=== PATIENT | female | born 1990 | race Caucasian/White ===

== ENCOUNTER 2025-05-16 05:37 | Outpatient (CLI) | payer SELFPAY ==
[2025-05-16 05:46] VITALS: BP 110/73; PULSE 78; RESP 16; TEMP 36.4
[2025-05-16 05:47] VITALS: PULSE 85; O2SAT 99
[2025-05-16 05:54] VITALS: BMI 30.6
[2025-05-16] MEDS: Lactated Ringers 500 ML 999 ML IV (06:36)
[2025-05-16 06:50] LABS: Mucous, Urine 0 SEEN /hpf (<or=2+); Red Blood Cells-Urine 0 SEEN /hpf (0-5)
[2025-05-16 06:51] LABS: Hematocrit 37.0 % (37-47); Hemoglobin 12.9 g/dL (12.0-15.0); Immature Granulocytes Count 0.030 X10^3/uL (0.0-0.0); Mean Corp Hgb Conc 34.9 g/dL (32-36); Mean Corpuscular Volume 86.9 fL (81-99); Mean Platelet Vol. 10.3 fl (6.2-12.0); NRBC Flagged by Analyzer 0 % (0-5); Platelet Count 172 K/mm3 (150-450); RBC Distribution Width CV 13.2 % (11.6-14.6); RBC Distribution Width SD 41.6 fl (35.1-43.9); Red Blood Count 4.26 M/mm3 (4.2-5.4); White Blood Count 7.9 K/mm3 (4.4-11.0)
[2025-05-16 07:13] LABS: Creatinine, Urine (random) 8.36 mg/dL (28.00-217.00); Protein, Urine (Random) < 6.0 mg/dL (0.0-12.0); Protein:Creat Ratio UNABLE TO CALCULATE mg/g CRE (0-200)
[2025-05-16 07:17] LABS: Glucose, Dipstick Normal (Normal); Ketone-Dipstick Negative (Negative); Leukocyte Esterase-Dipstick Negative /ul (Negative); Nitrite-Dipstick Negative (Negative); Occult Blood-Urine Negative /ul (Negative); Protein-Dipstick 15 mg/dl (Negative); Specific Gravity, Urine 1.010 (1.002-1.030); Urine Bilirubin Dipstick Negative (Negative)
[2025-05-16 07:18] LABS: Color, Urine Yellow (Yellow)
[2025-05-16 07:20] LABS: Hepatitis C Antibody Nonreactive (Nonreactive)
[2025-05-16 07:22] LABS: Squamous Epithelial Cells - UA 0-5 SEEN /hpf (5-10)
[2025-05-16 07:23] VITALS: BP 126/75; PULSE 82
[2025-05-16 07:24] VITALS: PULSE 82; PULSE 86; RESP 16; TEMP 36.7; O2SAT 97; O2SAT 98
[2025-05-16 07:40] LABS: Barbiturate Urine NEGATIVE (< 200 ng/mL); Benzodiazepine Urine NEGATIVE (< 200 ng/mL); PCP Urine NEGATIVE (< 25 ng/mL); THC Urine NEGATIVE (< 50 ng/mL)
[2025-05-16 07:42] LABS: AST(SGOT) 25 U/L (<=31); Alanine Aminotransfer ALT/SGPT 17 U/L (<=34); Albumin, Serum 3.7 g/dL (3.5-5.0); Alkaline Phosphatase 174 U/L (35-104); Anion Gap 11 (5-15); BUN 12 mg/dL (4-19); BUN/Creat Ratio 26.4 RATIO (10-20); Calcium,Total 9.2 mg/dL (7.6-11.0); Carbon Dioxide 20.4 mmol/L (21.0-32.0); Chloride 104 mmol/L (98-108); Estimated Creatinine Clearance 195.18 ml/min (50-250); Globulin 2.9 g/dL (2.2-4.2); Glucose 82 mg/dL (70-99); Potassium 4.0 mmol/L (3.3-5.1)
[2025-05-16 07:52] LABS: HIV Nonreactive (Nonreactive); Hepatitis B Surface Antigen Preliminary Reactive (Nonreactive); Syphilis Antibodies Nonreactive (Nonreactive)
--- NOTE | 2025-05-16 08:29 | OB.TRI.NOTE ---
HPI - General General Date of Admission: 05/16/25 Date of Service: 05/16/25 Chief Complaint: DFM HPI Narrative RAJEEV FELIX, is a 34 F who presents with DFM. She states she is 43 weeks by LMP. Her LMP is exact and she was having menstrual cycles q 28-30 days. She states she had DFM for 1 hour which worried her. No pain, vb, lof. She has been receiving care through a aircraft layout worker for her and denies complications. She has had 6 prior vaginal deliveries with her aircraft layout worker. She states she had an anatomy ultrasound at an outside office, as well as blood pressure checks. PFSH PFSH Home Medications Medication Instructions Recorded Last Taken Type NK 05/16/25 Unknown History Allergy/AdvReac Type Severity Reaction Status Date / Time diphenhydramine (From Allergy hallucinati Verified 05/16/25 05:51 Benadryl) ons Physical Exam Const alert and no apparent distress General Appearance: comfortable NST FHR Rate Baby A Baseline: 140 Variability:: Moderate Accelerations:: 15 x 15 Decelerations:: None NST Reactive:: Yes FHR Category:: Category I Uterine Activity:: irregular Assessment & Plan (1) Post-dates : PLAN: NST reactive and reassuring. panel drawn. Patient declines GBS swab. Discussed risks with GBS in and recommendation for a GBS swab with PCN treatment if positive in labor. A formal ultrasound was ordered for TETO and BPP, however the patient declines and requests to leave AMA. Discussed with patient and her partner the recommendation for a formal ultrasound, and an induction of labor. Recommend that she stay for delivery. Discussed risk with a post date including but not limited to macrosomia, section, still , injury, meconium stained fluid, . Questions answered. The patient states she understands the risks and the recommendations. She feels well counseled. She declines further care and states she is going home, and plans to check in with her aircraft layout worker daily including today. She declines a cervical exam today. Recommend that she at least have a cervical exam and membrane sweep if able with her aircraft layout worker. (2) No care in current : (3) Decreased movement:
--- NOTE | 2025-05-16 08:54 | NURSING ---
Pt and requesting to leave AMA since they know that FHT's and movement present and reactive nonstress test. Ultrasound was available to take pt but pt and spoke with Mary Palm, forest engineer and they are declining the ultrasound. Pt states they are going right to forest engineer's house where she plans to do a VE and possibly strip membranes to augment pt going into labor. Dr. Baker in pt's room to encourage pt to stay in the hospital to be induced and spoke of risks of placenta not effectively working at 43 weeks and the potential of risks of meconium with post-date delivery. told parents that BPP, NST, and ultrasounds are done twice a week to check well being after 41 weeks and encouraged parents to definitely get care right away with forest engineer and to not delay. Parents are agreeable to see forest engineer right away today after leaving the hospital. AMA papers signed and pt dressed. Kick Count sheet given. Pt requesting to ambulate to entrance with escort of RN to ride home with . No further questions prior to d/c to home. Heplock d/c'd and bandaid applied.
== END 2025-05-16 09:40 | disposition home or self-care (01) ==
LOC: WPOUT 05:42 → WP 05:42
PROVIDERS: PCP Physician Assistant; Referring Provider Obstetrics & Gynecology; Visit Provider Obstetrics & Gynecology
DX: O48.0 Post-term pregnancy (principal); O36.8130 Decreased fetal movements, third trimester, not applicable or unspecified; Z3A.49 Greater than 42 weeks gestation of pregnancy
CPT/HCPCS: 96360; 59025; 59050; 80053; 80307; 81001; 82570; 83036; 84156; 85025; 86703; 86762; 86780; 86803; 86850; 86900; 86901; 87340; 99221; G0378